=== PATIENT | female | born 1985 | race Caucasian/White ===

== ENCOUNTER → 2017-01-03 | Outpatient (CLI) | payer BC ==
--- NOTE | 2017-01-03 11:25 | DI ---
Indication: ITS.REASON: M25.551 RIGHT HIP PAIN PROCEDURE: HIP RIGHT 2 VIEW: Encounter: Initial Comparison: None Findings: There is no acute fracture, dislocation or malalignment identified. Joint space is normal. Impression: No acute osseous abnormality. .
== END ==
LOC: IMA 11:01
PROVIDERS: ATTEND Registered Nurse
DX: M25.551 Pain in right hip (principal)